=== PATIENT | female | born 1935 | race Asian ===

== ENCOUNTER → 2017-01-05 | Outpatient (CLI) | payer OTHER | LOC: FIMAGING 13:24 | PROVIDERS: ATTEND Family Medicine | DX: Z12.31 Encounter for screening mammogram for malignant neoplasm of breast (principal); Z80.3 Family history of malignant neoplasm of breast | CPT/HCPCS: G0202 ==

== ENCOUNTER 2017-06-28 05:34 | Observation (INO) | payer OTHER ==
--- NOTE | 2017-06-28 05:47 | EDPHY ---
H & P - Medical/Surgical History Hx Asthma: No Hx Chronic Respiratory Disease: No Hx Diabetes: Yes Hx Cardiac Disease: Yes Hx Renal Disease: No Hx Cirrhosis: No Hx Alcoholism: No Hx HIV/AIDS: No Hx Splenectomy or Spleen Trauma: No Other PMH: HTN, D.M., HYPOTHYROIDISM,. MENINGIOMA BRAIN TUMOR WITH SURGERY, heart enlargement at age 15 - Social History Smoking Status: Never smoked Time Seen by Provider: 06/28/17 05:37 HPI/ROS: Chief Complaint: Abdominal pain nausea and vomiting HPI: 82-year-old woman has been in her usual state of health. Ten o'clock last night she developed low abdominal pain which is unlike similar pains in the past. She did have some nausea and vomited once. Pain is described as a constant dull pain. Is an 8/10 in intensity. She called EMS this morning. They gave her intranasal fentanyl and the pain is now down to a 4. She has not had any urinary urgency or frequency. Does not have a history of similar pain in the past. Does not have a history of abdominal surgeries in the past. No fevers or chills. No chest pain or shortness of breath. My ROS PMH: GERD, type 2 diabetes, hypertension, hypothyroidism, meningioma resection Social History: No smoking, no alcohol, no recreational drug use Family History: non-contributory Physical Exam: Gen: Awake, Alert, No Distress HEENT: Nose: no rhinorrhea Eyes: PERRLA, EOMI Mouth: Moist mucosa Neck: Supple, no JVD Chest: nontender, lungs clear to auscultation Heart: S1, S2 normal, no murmur Abd: Soft, moderate suprapubic tenderness, no guarding Back: no CVA tenderness, no midline tenderness Ext: no edema, non-tender Skin: no rash Neuro: CN II-XII intact, Sensation grossly intact, Strength 5/5 in bilateral upper and lower extremities (Jay Juarez) Constitutional: Initial Vital Signs Temperature (C) 36.5 C 06/28/17 05:49 Heart Rate 91 06/28/17 05:49 Respiratory Rate 20 06/28/17 05:49 Blood Pressure 161/79 H 06/28/17 05:49 O2 Sat (%) 93 06/28/17 05:49 O2 Delivery Mode Room Air O2 (L/minute) 2 Allergies/Adverse Reactions: amoxicillin [Amoxicillin] Allergy (Verified 06/28/17 05:49) Hives Penicillins Allergy (Verified 06/28/17 05:49) Hives IV contrast dye Allergy (Uncoded 06/28/17 05:49) Hives Home Medications: Medication Instructions Recorded Aspirin EC [Aspirin EC 81 mg (*)] 81 mg PO HS 11/24/15 Atorvastatin Calcium [Lipitor 10 10 mg PO DAILY 11/24/15 mg (*)] Calcium Carbonate 600 mg PO DAILY 11/24/15 Fesoterodine Fumarate [Toviaz (*)] 8 mg PO HS 11/24/15 Herbals/Supplements -Info Only 1 ea PO DAILY 11/24/15 Lactoperoxi/Gluc Oxid/Pot Thio 1 chito MM PRN PRN 11/24/15 [Biotene Oralbalance Gel] Levothyroxine [Synthroid 50 mcg 50 mcg PO DAILY 11/24/15 (*)] Loperamide HCl [Loperamide] 2 mg PO PRN PRN 11/24/15 Losartan Potassium [Cozaar 25 mg 25 mg PO DAILY 11/24/15 (*)] Melatonin [Melatonin 3 MG (*)] 3 mg PO HS PRN 11/24/15 Omeprazole [Prilosec] 40 mg PO HS 11/24/15 amLODIPine BESYLATE [Norvasc 10 mg 10 mg PO DAILY 11/24/15 (*)] sitaGLIPtin PHOSPHATE [Januvia 100 100 mg PO DAILY 11/24/15 MG (*)] Azithromycin [Zithromax] 500 mg PO DAILY #2 tab 11/25/15 Medical Decision Making - Diagnostics Imaging Results: CT scan of the abdomen pelvis with no contrast shows no acute findings. There is some mild diverticulosis but no findings consistent with diverticulitis. There is no obstruction. The appendix is normal. Study interpreted by Dr. Mcghee. (Jay Juarez) ED Course/Re-evaluation: 82-year-old woman presenting with lower abdominal pain nausea and vomiting. Laboratory evaluations and CT scan are negative. She has not been able to provide us with a urinalysis as of yet. Patient is signed out to Dr. Pedraza pending urine results and reassessment. (Jay Juarez) 7:00 a.m.-I assumed care of this patient at shift change. She presents with lower abdominal cramping and vomiting. Better after IV Zofran and a and intranasal fentanyl. She currently complains of lower abdominal cramping only. Abdominal exam is benign. CT scan of the abdomen pelvis was unremarkable. I will give her Toradol 15 mg IV and then reassess. Urinalysis is pending. 9:00 a.m.-continues to have lower abdominal cramping. The nausea has resolved. Given persistent abdominal pain, the patient feels that she needs to be admitted for observation. Abdominal exam remains benign. The hospitalist service was consulted for admission. (Eleni Pedraza) Differential Diagnosis: Differential diagnosis includes though it is not limited to appendicitis, cholecystitis, diverticulitis, pyelonephritis, bowel perforation, small bowel obstruction. (Eleni Pedraza) - Data Points Laboratory Results: Laboratory Results 06/28/17 06:15 06/28/17 06:15 06/28/17 06/28/17 06/28/17 07:55 06:15 06:15 WBC 9.15 10^3/uL 10^3/uL (3.80-9.50) RBC 5.06 10^6/uL 10^6/uL (4.18-5.33) Hgb 13.4 g/dL g/dL (12.6-16.3) Hct 41.2 % % (38.0-47.0) MCV 81.4 fL L fL (81.5-99.8) MCH 26.5 pg L pg (27.9-34.1) MCHC 32.5 g/dL g/dL (32.4-36.7) RDW 13.7 % % (11.5-15.2) Plt Count 241 10^3/uL 10^3/uL (150-400) MPV 10.5 fL fL (8.7-11.7) Neut % (Auto) 85.4 % H % (39.3-74.2) Lymph % (Auto) 11.0 % L % (15.0-45.0) [place] % (Auto) 2.3 % L % (4.5-13.0) Eos % (Auto) 0.3 % L % (0.6-7.6) Baso % (Auto) 0.7 % % (0.3-1.7) Nucleat RBC Rel Count 0.0 % % (0.0-0.2) Absolute Neuts (auto) 7.81 10^3/uL H 10^3/uL (1.70-6.50) Absolute Lymphs (auto) 1.01 10^3/uL 10^3/uL (1.00-3.00) Absolute Monos (auto) 0.21 10^3/uL L 10^3/uL (0.30-0.80) Absolute Eos (auto) 0.03 10^3/uL 10^3/uL (0.03-0.40) Absolute Basos (auto) 0.06 10^3/uL 10^3/uL (0.02-0.10) Absolute Nucleated RBC 0.00 10^3/uL 10^3/uL (0-0.01) Immature Gran % 0.3 % % (0.0-1.1) Immature Gran # 0.03 10^3/uL 10^3/uL (0.00-0.10) Sodium 140 mEq/L mEq/L (134-144) Potassium 4.3 mEq/L mEq/L (3.5-5.2) Chloride 104 mEq/L mEq/L (97-110) Carbon Dioxide 22 mEq/l mEq/l (22-31) Anion Gap 14 mEq/L mEq/L (8-16) BUN 22 mg/dL mg/dL (7-23) Creatinine 1.1 mg/dL H mg/dL (0.6-1.0) Estimated GFR 47 Glucose 197 mg/dL H mg/dL (70-100) Calcium 9.8 mg/dL mg/dL (8.5-10.4) Total Bilirubin 0.6 mg/dL mg/dL (0.1-1.4) AST 35 IU/L IU/L (14-46) ALT 40 IU/L IU/L (9-52) Alkaline Phosphatase 55 IU/L IU/L (38-126) Total Protein 7.7 g/dL g/dL (6.3-8.2) Albumin 4.2 g/dL g/dL (3.5-5.0) Lipase 108 IU/L IU/L (23-300) Urine Color PALE YELLOW Urine Appearance CLEAR Urine pH 8.0 H (5.0-7.5) Ur Specific [place] 1.009 (1.002-1.030) Urine Protein NEGATIVE (NEGATIVE) Urine Ketones TRACE H (NEGATIVE) Urine Blood NEGATIVE (NEGATIVE) Urine Nitrate NEGATIVE (NEGATIVE) Urine Bilirubin NEGATIVE (NEGATIVE) Urine Urobilinogen NEGATIVE EU EU (0.2-1.0) Ur Leukocyte Esterase NEGATIVE (NEGATIVE) Urine RBC 1-3 /hpf /hpf (0-3) Urine WBC 1-3 /hpf /hpf (0-3) Ur Epithelial Cells TRACE /lpf /lpf (NONE-1+) Urine Glucose 3+ H (NEGATIVE) Medications Given: Discontinued Medications Sodium Chloride (Ns) 500 mls @ 0 mls/hr IV ONCE ONE; Wide Open PRN Reason: Protocol Stop: 06/28/17 06:19 Last Admin: 06/28/17 06:31 Dose: 500 mls Ketorolac Tromethamine (Toradol) 15 mg IVP EDNOW ONE Stop: 06/28/17 07:09 Last Admin: 06/28/17 07:17 Dose: 15 mg Departure - Departure Disposition: [facility] Inpatient Acute Clinical Impression: Abdominal pain Qualifiers: Abdominal location: lower abdomen, unspecified Qualified Code(s): R10.30 - Lower abdominal pain, unspecified Vomiting Qualifiers: Vomiting Intractability: non-intractable Nausea presence: with nausea Condition: Fair Referrals: Patient,NotPresent [Unknown] - As per Instructions
[2017-06-28] MEDS ORDERED: NS 500 ML IV ONE (06:18)
[2017-06-28 06:24] LABS: % IMMATURE GRANULYOCYTES 0.3 % (0.0-1.1); ABSOLUTE IMMATURE GRANULOCYTES 0.03 10^3/uL (0.00-0.10); ADD DIFF? NO; ADD MORPH? NO; ADD SCAN? NO; ATYPICAL LYMPHOCYTE FLAG 0 (0-99); FRAGMENT RBC FLAG 0 (0-99); HEMATOCRIT 41.2 % (38.0-47.0); HEMOGLOBIN 13.4 g/dL (12.6-16.3); LEFT SHIFT FLG 0 (0-99); LIPEMIA HEMOLYSIS FLAG 80 (0-99); MEAN CELL HEMOGLOBIN 26.5 pg (27.9-34.1); MEAN CELL HEMOGLOBIN CONCENTR. 32.5 g/dL (32.4-36.7); MEAN CELL VOLUME 81.4 fL (81.5-99.8); MEAN PLATELET VOLUME 10.5 fL (8.7-11.7); PLATELET CLUMPS FLAG 20 (0-99); PLATELET COUNT 241 10^3/uL (150-400); RED BLOOD CELL COUNT 5.06 10^6/uL (4.18-5.33); RED CELL DISTRIBUTION WIDTH 13.7 % (11.5-15.2)
[2017-06-28 06:56] LABS: ALANINE AMINOTRANSFERASE 40 IU/L (9-52); ALBUMIN 4.2 g/dL (3.5-5.0); ALKALINE PHOSPHATASE 55 IU/L (38-126); ANION GAP 14 mEq/L (8-16); ASPARTATE AMINOTRANSFERASE 35 IU/L (14-46); BILIRUBIN,TOTAL 0.6 mg/dL (0.1-1.4); CALCIUM 9.8 mg/dL (8.5-10.4); CARBON DIOXIDE 22 mEq/l (22-31); CHLORIDE 104 mEq/L (97-110); CREATININE 1.1 mg/dL (0.6-1.0); GLOMERULAR FILTRATION RATE 47; GLUCOSE 197 mg/dL (70-100); POTASSIUM 4.3 mEq/L (3.5-5.2); SODIUM 140 mEq/L (134-144); TOTAL PROTEIN 7.7 g/dL (6.3-8.2)
[2017-06-28] MEDS ORDERED: KETOROLAC 15 MG/1 ML SDV IVP ONE (07:08)
[2017-06-28 08:09] LABS: COLOR PALE YELLOW; LEUKOCYTE ESTERASE,URINE NEGATIVE (NEGATIVE); NITRITE,URINE NEGATIVE (NEGATIVE)
[2017-06-28] MEDS ORDERED: ONDANSETRON DISINTEGRATING 4 MG TAB PO PRN (09:41)
[2017-06-28] MEDS ORDERED: ONDANSETRON 4 MG/2 ML VIAL IVP PRN (09:41)
[2017-06-28] MEDS ORDERED: METOCLOPRAMIDE 10 MG/2 ML VIAL IVP PRN (09:41)
[2017-06-28] MEDS ORDERED: ACETAMINOPHEN 325 MG TAB PO PRN (09:41)
[2017-06-28] MEDS ORDERED: METOCLOPRAMIDE 10 MG TAB PO PRN (09:41)
[2017-06-28] MEDS ORDERED: HYDROCORTISONE 1% CREAM TP PRN (09:43)
[2017-06-28] MEDS ORDERED: LACTULOSE 20 GM/30 ML UDCUP PO PRN (09:44)
[2017-06-28] MEDS ORDERED: POLYETHYLENE GLYCOL 3350 17 GM PKT PO PRN (09:44)
[2017-06-28] MEDS ORDERED: MAGNESIUM HYDROXIDE 30 ML UDCUP PO PRN (09:44)
[2017-06-28] MEDS ORDERED: BISACODYL 10 MG SUPP PR PRN (09:44)
[2017-06-28] MEDS ORDERED: ASPIRIN EC 81 MG TAB PO SCH (09:45)
[2017-06-28] MEDS ORDERED: CALCIUM CARB W/VIT D 500 MG TAB PO SCH (09:45)
[2017-06-28] MEDS ORDERED: SENNOSIDES/DOCUSATE SODIUM TAB PO SCH (09:45)
[2017-06-28 09:56] LABS: ALBUMIN 4.2 g/dL (3.5-5.0); BILIRUBIN,TOTAL 0.7 mg/dL (0.1-1.4); BILIRUBIN-CONJUGATED 0.4 mg/dL (0.0-0.5); BILIRUBIN-UNCONJUGATED 0.3 mg/dL (0.0-1.1); TOTAL PROTEIN 7.8 g/dL (6.3-8.2)
[2017-06-28 09:59] VITALS: RESP 18
[2017-06-28] MEDS ORDERED: LR 1,000 ML IV SCH (10:00)
[2017-06-28] MEDS ORDERED: BISACODYL 5 MG EC TAB PO PRN (15:08)
[2017-06-28] MEDS ORDERED: BISACODYL 5 MG EC TAB PO ONE (15:08)
[2017-06-28] MEDS ORDERED: MAGNESIUM CITRATE 300 ML BOTTLE PO ONE (15:08)
[2017-06-28] MEDS ORDERED: hydrOXYzine HCL 10 MG TAB PO PRN (15:08)
--- NOTE | 2017-06-28 15:12 | PDGENHP ---
History and Physical - Chief Complaint Acute abdominal pain - History of Present Illness Primary care provider: Dr. Hunt Primary magnetic prospector: Dr. Mack Ventura Primary chips screen tender: Dr. Evelyn Ulloa HPI: 82-year-old female presents with acute abdominal pain located in the lower abdomen with associated nausea and vomiting, characterized as constant, dull, 8/10 pain, with onset at 10:00 p.m. on June 27. Patient reports that she had previously been feeling well but her weak and had consumed mostly by holiday parties, during which she consumed numerous sweets and dairy products , which sometimes do not agree with her system. Patient reports that her pain is somewhat alleviated by belching, also alleviated by fentanyl received by EMS. It is somewhat exacerbated by palpation. She reports she has never experienced similar symptoms. She has not moved her bowels since the beginning of the symptoms. She is unclear when she moved her bowels last. She took all of her home medications on the morning of presentation. History Information - Allergies/Home Medication List Allergies/Adverse Reactions: amoxicillin [Amoxicillin] Allergy (Verified 06/28/17 05:49) Hives Iodinated Contrast- Oral and IV Dye Allergy (Verified 06/28/17 09:25) Hives Penicillins Allergy (Verified 06/28/17 05:49) Hives Home Medications: Aspirin EC [Aspirin EC 81 mg (*)] 81 mg PO DAILY 11/24/15 [Last Taken 06/27/17] Fesoterodine Fumarate [Toviaz (*)] 8 mg PO HS 11/24/15 [Last Taken 06/27/17] Herbals/Supplements -Info Only 1 ea PO DAILY 11/24/15 [Last Taken Unknown] Lactoperoxi/Gluc Oxid/Pot Thio [Biotene Oralbalance Gel] 1 chito MM PRN PRN [Last Taken 06/27/17] Levothyroxine [Synthroid 50 mcg (*)] 25 mcg PO DAILY@06 11/24/15 [Last Taken 09/12] Losartan Potassium [Cozaar 25 mg (*)] 25 mg PO DAILY 11/24/15 [Last Taken ] Omeprazole [Prilosec] 40 mg PO DAILY PRN 11/24/15 [Last Taken 06/27/17] amLODIPine BESYLATE [Norvasc 10 mg (*)] 10 mg PO DAILY 11/24/15 [Last Taken 09/12] sitaGLIPtin PHOSPHATE [Januvia 100 MG (*)] 100 mg PO DAILY 11/24/15 [Last Taken 06/27/17] Acetaminophen [Tylenol 325mg (*)] 325 - 650 mg PO Q6 PRN 06/28/17 [Last Taken Unknown] Calcium Carb W/Vit D [Calcium Carb W/Vit D 500/200 (*)] 500 mg PO DAILY [Last Taken 06/27/17] Hydrocortisone 1% [Hydrocortisone 1% cream (*)] 1 chito TP DAILY PRN 06/28/17 [ Last Taken Unknown] hydrOXYzine HCL [Vistaril] 10 - 20 mg PO BID PRN 06/28/17 [Last Taken 06/26/17] I have personally reviewed and updated: family history, medical history, social history, surgical history - Past Medical History diabetes type 2 (With last hemoglobin A1c 7.1% on 12/30/2016), hypertension Additional medical history: Chronic kidney disease stage 3 with baseline creatinine 1.0-1.2. Gastroesophageal reflux disease. Fatty liver disease. Obstructive sleep apnea with CPAP - Surgical History Additional surgical history: Meningioma resection - Family History Additional family history: Mother with coronary artery disease and diabetes. recently traveled internationally, not sick - Social History Smoking Status: Never smoked Alcohol Use: None Drug Use: None Additional social history: Socially active, goes to holiday parties Review of Systems Review of Systems: ROS: 10pt was reviewed & negative except for what was stated in HPI & below Gastrointestinal: Reports: vomitting, abdominal pain, constipation, nausea Physical Exam Physical Exam: Temp Pulse Resp BP Pulse Ox 36.9 C 92 18 130/72 H 94 06/28/17 11:34 06/28/17 11:34 06/28/17 11:34 06/28/17 11:34 06/28/17 11:34 Constitutional: no apparent distress, not in pain, uncomfortable Eyes: PERRL, anicteric sclera, EOMI Ears, Nose, Mouth, Throat: moist mucous membranes, hearing normal, ears appear normal, no oral mucosal ulcers Cardiovascular: tachycardia, No systolic murmur, No irregularly irregular, No edema Respiratory: no respiratory distress, no rales or rhonchi, clear to auscultation Gastrointestinal: tenderness (To moderate palpation in the lower abdomen) , No normoactive bowel sounds (Hypoactive bowel sounds), No guarding, No distension Skin: warm, normal color, no rashes or abrasions, no fluctuance, no induration, other (No tenting), No mottled Neurologic: AAOx3, sensation intact bilaterally, No weakness (Motor strength 5/ 5 bilateral lower extremities), No facial droop Psychiatric: interacting appropriately, not anxious, not encephalopathic, thought process linear Lab Data & Imaging Review 06/28/17 06:15 06/28/17 06:15 WBC 9.15 10^3/uL (3.80-9.50) 06/28/17 06:15 RBC 5.06 10^6/uL (4.18-5.33) 06/28/17 06:15 Hgb 13.4 g/dL (12.6-16.3) 06/28/17 06:15 Hct 41.2 % (38.0-47.0) 06/28/17 06:15 MCV 81.4 fL (81.5-99.8) L 06/28/17 06:15 MCH 26.5 pg (27.9-34.1) L 06/28/17 06:15 MCHC 32.5 g/dL (32.4-36.7) 06/28/17 06:15 RDW 13.7 % (11.5-15.2) 06/28/17 06:15 Plt Count 241 10^3/uL (150-400) 06/28/17 06:15 MPV 10.5 fL (8.7-11.7) 06/28/17 06:15 Neut % (Auto) 85.4 % (39.3-74.2) H 06/28/17 06:15 Lymph % (Auto) 11.0 % (15.0-45.0) L 06/28/17 06:15 [place] % (Auto) 2.3 % (4.5-13.0) L 06/28/17 06:15 Eos % (Auto) 0.3 % (0.6-7.6) L 06/28/17 06:15 Baso % (Auto) 0.7 % (0.3-1.7) 06/28/17 06:15 Nucleat RBC Rel Count 0.0 % (0.0-0.2) 06/28/17 06:15 Absolute Neuts (auto) 7.81 10^3/uL (1.70-6.50) H 06/28/17 06:15 Absolute Lymphs (auto) 1.01 10^3/uL (1.00-3.00) 06/28/17 06:15 Absolute Monos (auto) 0.21 10^3/uL (0.30-0.80) L 06/28/17 06:15 Absolute Eos (auto) 0.03 10^3/uL (0.03-0.40) 06/28/17 06:15 Absolute Basos (auto) 0.06 10^3/uL (0.02-0.10) 06/28/17 06:15 Absolute Nucleated RBC 0.00 10^3/uL (0-0.01) 06/28/17 06:15 Immature Gran % 0.3 % (0.0-1.1) 06/28/17 06:15 Immature Gran # 0.03 10^3/uL (0.00-0.10) 06/28/17 06:15 Sodium 140 mEq/L (134-144) 06/28/17 06:15 Potassium 4.3 mEq/L (3.5-5.2) 06/28/17 06:15 Chloride 104 mEq/L (97-110) 06/28/17 06:15 Carbon Dioxide 22 mEq/l (22-31) 06/28/17 06:15 Anion Gap 14 mEq/L (8-16) 06/28/17 06:15 BUN 22 mg/dL (7-23) 06/28/17 06:15 Creatinine 1.1 mg/dL (0.6-1.0) H 06/28/17 06:15 Estimated GFR 47 06/28/17 06:15 Glucose 197 mg/dL (70-100) H 06/28/17 06:15 POC Glucose 201 mg/dL (70-100) H 06/28/17 09:53 Calcium 9.8 mg/dL (8.5-10.4) 06/28/17 06:15 Total Bilirubin 0.7 mg/dL (0.1-1.4) 12/03/17 06:15 Conjugated Bilirubin 0.4 mg/dL (0.0-0.5) 06/28/17 06:15 Unconjugated Bilirubin 0.3 mg/dL (0.0-1.1) 06/28/17 06:15 AST 41 IU/L (14-46) 06/28/17 06:15 ALT 41 IU/L (9-52) 06/28/17 06:15 Alkaline Phosphatase 59 IU/L (38-126) 06/28/17 06:15 Total Protein 7.8 g/dL (6.3-8.2) 06/28/17 06:15 Albumin 4.2 g/dL (3.5-5.0) 06/28/17 06:15 Lipase 108 IU/L (23-300) 06/28/17 06:15 Urine Color PALE YELLOW 06/28/17 07:55 Urine Appearance CLEAR 06/28/17 07:55 Urine pH 8.0 (5.0-7.5) H 06/28/17 07:55 Ur Specific [place] 1.009 (1.002-1.030) 06/28/17 07:55 Urine Protein NEGATIVE (NEGATIVE) 06/28/17 07:55 Urine Ketones TRACE (NEGATIVE) H 06/28/17 07:55 Urine Blood NEGATIVE (NEGATIVE) 06/28/17 07:55 Urine Nitrate NEGATIVE (NEGATIVE) 06/28/17 07:55 Urine Bilirubin NEGATIVE (NEGATIVE) 06/28/17 07:55 Urine Urobilinogen NEGATIVE EU (0.2-1.0) 06/28/17 07:55 Ur Leukocyte Esterase NEGATIVE (NEGATIVE) 06/28/17 07:55 Urine RBC 1-3 /hpf (0-3) 06/28/17 07:55 Urine WBC 1-3 /hpf (0-3) 06/28/17 07:55 Ur Epithelial Cells TRACE /lpf (NONE-1+) 06/28/17 07:55 Urine Glucose 3+ (NEGATIVE) H 06/28/17 07:55 Visualized and Interpreted imaging results: Yes Interpretation: CT of the abdomen demonstrating diverticulosis, constipation, fibroids, sludge in the gallbladder Assessment & Plan Assessment: 82-year-old female presenting with acute abdominal pain in the setting of constipation Plan: 1. Abdominal pain. Acute, new problem this provider, further workup indicated. Most likely secondary to constipation, alleviate as outlined below -reviewed outside records including 11/25/[address] Aziza Seth, reports patient had a negative stress test at that time for presentation regarding chest pain, no indication for further cardiac risk stratification at this time. -treat supportively with antiemetic promotility agents, attempt to avoid opiates to avoid worsening her constipation -although CT demonstrates some biliary sludge, get liver panel to ensure no evidence of cholecystitis -hold on lactic acid level, as she has no metabolic acidosis but is at risk for vascular disease, if symptoms worsening and not alleviated by bowel movement, then get lactic acid -treat supportively with IV fluids, bowel rest with clear liquids 2. Constipation. Acute, most likely responsible for the aforementioned symptoms -treat aggressively with laxatives, including magnesium citrate and bisacodyl -suppositories and enemas as needed if above unsuccessful 3. Obstructive sleep apnea. CPAP tonight if remains hospitalized 4. Diabetes mellitus type 2. With hyperglycemia, most likely secondary to stress response from above, placed on insulin sliding scale 5. Chronic kidney disease stage 3. Currently at baseline creatinine level, monitor given poor oral intake Diet. Clears, advance as tolerated Prophylaxis. High risk patient, Lovenox 30 Code. Full per patient, MD CARRANZA Disposition. Anticipated discharge is later on 06/28 versus 06/29, pending improvement and resolution of situation outlined above. Discussed with Kandace Ray, hospitalist provider, she has signed out the patient to me for evaluation.
[2017-06-28 16:01] VITALS: BP 130/70; PULSE 86; TEMP 98.5; O2SAT 92
--- NOTE | 2017-06-28 17:50 | PDDCSUM ---
Discharge Summary Discharge Summary: DISCHARGE SUMMARY FOLLOW-UP ITEMS: Follow up with primary care provider to ensure symptoms resolved with bowel movement DATE OF ADMISSION: 06/28/2017 DATE OF DISCHARGE: 06/28/2017 DISCHARGE DIAGNOSES: 1. Acute abdominal pain 2. Acute constipation 3. Chronic kidney disease stage 3 CONSULTATIONS: None PROCEDURES / IMAGING: Abdominal CT demonstrating constipation, diverticulosis, fibroids, no other acute pathology CHIEF COMPLAINT: Acute abdominal pain SUBJECTIVE: Patient's abdominal pain has reduced, she has yet to have a bowel movement despite consuming significant amounts of laxatives PHYSICAL EXAM ON DISCHARGE: Systolic blood pressure 130, heart rate 80-90, afebrile overnight, satting well on room air, abdomen is soft, mildly tender to moderate depth palpation, no guarding LABS ON DISCHARGE: Creatinine 1.1, glucose 200, liver panel unremarkable, lipase negative HOSPITAL COURSE BY PROBLEM: Patient presented with acute abdominal pain most likely secondary to constipation. There is significant constipation on her abdominal CT. There were no other pathologic lab or imaging findings. A provided her with Senokot S , bisacodyl orally, milk of magnesia, magnesium citrate, and she was yet to have a bowel movement. The patient chose to discharge home with use of over-the -counter home laxatives. I have provided her with scripts for these laxatives as well as a suppository back up. I have also recommended as needed Reglan for any nausea. DISCHARGE MEDICATIONS: Please see official discharge medication reconciliation sheet in chart , Reglan as needed for nausea, bisacodyl suppository if no bowel movement tonight, MiraLax as needed, Senokot S twice daily until bowel movement. DISCHARGE INSTRUCTIONS: Please follow up with primary care provider within the next 1-2 days to reassess any persistence of symptoms.
[2017-06-28] MEDS ORDERED: FESOTERODINE FUMARATE 8 MG TAB.ER PO SCH (21:00)
[2017-06-29] MEDS ORDERED: LEVOTHYROXINE 50 MCG TAB PO SCH (06:00)
[2017-06-29] MEDS ORDERED: ENOXAPARIN 30 MG/0.3 ML SYR SC SCH (09:00)
[2017-06-29] MEDS ORDERED: PANTOPRAZOLE SODIUM 40 MG TAB PO PRN (09:00)
--- NOTE | 2017-06-29 11:41 | ASDISCHSUM ---
Discharge Information Plan Status:Home with No Needs Medically Cleared to Leave: Discharge Date:06/28/2017 06:48 PM CM D/C Disposition:Home, Routine, Self-Care ADT D/C Disposition:Home, Routine, Self-Care Projected Discharge Date:06/28/2017 06:48 PM Transportation at D/C:Family Discharge Delay Reason: Follow-Up Date:06/28/2017 06:48 PM Discharge Slot: Final Diagnosis: Placement Information Patient Contact Information Contact Name:MARANDA Relationship: Address:[address] Work Phone: City:[place] Alternate Phone: [facility]/Zip Code:[place] [address] Email: Financial Information Financial Class:Medicare Advantage Plans Primary Plan Desc:[employer] Primary Plan Number:[id number] Secondary Plan Desc: Secondary Plan Number: Assessment Information Intervention Information
== END 2017-06-28 18:48 | disposition home or self-care (01) ==
LOC: F3E 09:46
PROVIDERS: ADMIT Internal Medicine; ATTEND Internal Medicine
DX: R10.30 Lower abdominal pain, unspecified (principal); K59.00 Constipation, unspecified; N18.3 Chronic kidney disease, stage 3 (moderate); I12.9 Hypertensive chronic kidney disease with stage 1 through stage 4 chronic kidney disease, or unspecified chronic kidney disease; E11.22 Type 2 diabetes mellitus with diabetic chronic kidney disease; E03.9 Hypothyroidism, unspecified; Z86.011 Personal history of benign neoplasm of the brain
CPT/HCPCS: 74176; G0378; J1885; J2765; 96374

== ENCOUNTER → 2018-06-04 | Outpatient (CLI) | payer OTHER ==
[~2018-06-04] MED LIST: GADOBUTROL 10 ML VIAL IVP ONE
== END ==
LOC: FIMAGING 12:52
PROVIDERS: ATTEND Family Medicine
DX: Z48.3 Aftercare following surgery for neoplasm (principal)
CPT/HCPCS: 70553; A9585